=== PATIENT | male | born 1990 | race Caucasian/White ===

== ENCOUNTER 2025-07-10 21:52 | Emergency (ER) | payer OTHER ==
[~2025-07-10] VITALS: Ht 182.9 cm; Wt 123.8 kg
[2025-07-10 22:01] VITALS: BP 153/104
[2025-07-10 23:30] LABS: Source, Urine Clean Catch
[2025-07-10 23:38] LABS: Bilirubin, Urine Neg (Neg); Glucose Qualitative, Urine Neg (Neg); Ketones, Urine Neg (Neg); Leukocyte Esterase, Urine Neg (Neg); Protein, Urine 1+ (Neg); Specific Gravity, Urine 1.025 (1.003-1.022); Urobilinogen, Urine NORM (Normal)
[2025-07-10 23:45] LABS: Color, Urine Yellow (P-Yellow)
[2025-07-10 23:46] LABS: Red Blood Cells, Urine 0-2 /hpf (0-2)
[2025-07-11] MEDS ORDERED: ONDA4ODT MM (00:37)
== END 2025-07-11 00:43 | disposition home or self-care (01) ==
LOC: ER 21:52
PROVIDERS: Student in an Organized Health Care Education/Training Program
DX: R10.20 Pelvic and perineal pain unspecified side (principal); Z87.718 Personal history of other specified (corrected) congenital malformations of genitourinary system; Z88.0 Allergy status to penicillin; Z88.8 Allergy status to other drugs, medicaments and biological substances
CPT/HCPCS: 76870; 81001; 99284-25; A9270